=== PATIENT | male | born 1980 | race Caucasian/White ===

== ENCOUNTER 2017-08-08 11:46 | Emergency (ER) | payer BC ==
[2017-08-08] MEDS ORDERED: DICYCLOMINE 20 MG TAB PO STA (13:15)
[2017-08-08] MEDS ORDERED: SODIUM CHLORIDE 0.9% 2,000 ML IV STA (13:15)
[2017-08-08] MEDS ORDERED: ONDANSETRON 4 MG/2 ML VIAL IVP STA (13:15)
--- NOTE | 2017-08-08 13:18 | ED ---
Nausea/Vomiting/Diarrhea HPI - General Chief complaint: Nausea/Vomiting/Diarrhea Stated complaint: food poison Time Seen by Provider: 08/08/17 13:06 Source: patient Mode of arrival: ambulatory Limitations: no limitations - History of Present Illness Initial comments: Patient presents with 4 days of diarrhea. Patient states he returned from a trip to [place] Wednesday night. States morning he had vomiting. Vomiting has since resolved. Patient states he continues to have frequent diarrhea. Patient describes diarrhea as a mustard colored. States no blood in diarrhea or vomiting. Patient states she has mild bilateral lower abdominal cramping just before bowel movement, otherwise no abdominal pains. Patient denies fevers, chills, cough, URI symptoms, changes in urination. Patient denies travel outside the country. Patient denies contact with water sources. Patient states he ate sushi, at [email or web address], ate at many restaurants during his trip, however no one else he was with has been sick. - Related Data Home Medications Medication Instructions Recorded Confirmed Acetaminophen Tab [Tylenol Tab] 650 mg PO Q4H PRN 08/08/17 08/08/17 Bismuth Subsalicylate 524 mg PO ONCE PRN 08/08/17 08/08/17 [Pepto-Bismol] Previous Rx's Medication Instructions Recorded Dicyclomine [Bentyl] 20 mg PO BID #10 tablet 08/08/17 Allergies Allergy/AdvReac Type Severity Reaction Status Date / Time No Known Allergies Allergy Verified 08/08/17 13:13 Review of Systems ROS Statement: Those systems with pertinent positive or pertinent negative responses have been documented in the HPI. ROS Other: All systems not noted in ROS Statement are negative. Constitutional: Denies: fever, chills Eyes: Denies: vision change ENT: Denies: throat pain, congestion Respiratory: Denies: cough Cardiovascular: Denies: chest pain Endocrine: Denies: fatigue Gastrointestinal: Reports: abdominal pain, vomiting (resolved), diarrhea. Denies: nausea, constipation, hematemesis, melena, hematochezia Genitourinary: Denies: urgency, dysuria, frequency, hematuria Musculoskeletal: Denies: back pain, myalgia Skin: Denies: rash, change in color Neurological: Denies: headache Past Medical History Past Medical History: No Reported History History of Any Multi-Drug Resistant Organisms: None Reported Additional Past Surgical History / Comment(s): cysts removed from back Past Psychological History: No Psychological Hx Reported Smoking Status: Never smoker Past Alcohol Use History: Occasional Past Drug Use History: None Reported General Exam - General Exam Comments Initial Comments: Sitting up in bed. No acute distress. Conversing normally. Calm, pleasant, smiling. Not appear in pain. Well-appearing Limitations: no limitations General appearance: alert, in no apparent distress Head exam: Present: atraumatic, normocephalic Eye exam: Present: normal appearance, PERRL, EOMI. Absent: scleral icterus ENT exam: Present: normal oropharynx, mucous membranes moist Neck exam: Present: normal inspection Respiratory exam: Present: normal lung sounds bilaterally. Absent: respiratory distress, wheezes, rales Cardiovascular Exam: Present: regular rate, normal rhythm GI/Abdominal exam: Present: soft. Absent: distended, tenderness, guarding, rebound, rigid, hernia Extremities exam: Present: other (No gross deformities) Neurological exam: Present: alert, oriented X3 Psychiatric exam: Present: normal affect, normal mood Skin exam: Present: warm, dry, intact, normal color. Absent: rash, diaphoretic , erythema Course Vital Signs 08/08/17 11:48 Temperature 97.1 F L Pulse Rate 100 Respiratory 18 Rate Blood Pressure 168/105 O2 Sat by Pulse 97 Oximetry Medical Decision Making - Medical Decision Making IV fluids, Zofran, Bentyl ordered Patient states currently no abdominal pain. Abdominal pains are mild and only right before bowel movement, relieved with bowel movements. Patient has no tenderness on exam. Do not feel imaging of the abdomen warranted at this time. Labs reviewed, minimal elevation of white blood cell count. Patient reevaluated, states symptoms improved. Feels comfortable being discharged home at this time. Agrees to follow primary care physician. Prescription of Bentyl given. Oral hydration discussed. Return to ER for new or worsening symptoms, patient understands and agrees. - Lab Data Result diagrams: 08/08/17 13:39 08/08/17 13:39 Lab Results 08/08/17 08/08/17 08/08/17 Range/Units 13:39 13:39 14:00 WBC 10.9 H (3.8-10.6) k/uL RBC 5.80 (4.30-5.90) m/uL Hgb 16.3 (13.0-17.5) gm/dL Hct 45.1 (39.0-53.0) % MCV 77.8 L (80.0-100.0) fL MCH 28.1 (25.0-35.0) pg MCHC 36.1 (31.0-37.0) g/dL RDW 13.0 (11.5-15.5) % Plt Count 248 (150-450) k/uL Neutrophils % 77 % Lymphocytes % 14 % Monocytes % 6 % Eosinophils % 1 % Basophils % 0 % Neutrophils # 8.4 H (1.3-7.7) k/uL Lymphocytes # 1.6 (1.0-4.8) k/uL Monocytes # 0.6 (0-1.0) k/uL Eosinophils # 0.1 (0-0.7) k/uL Basophils # 0.0 (0-0.2) k/uL Sodium 141 (137-145) mmol/L Potassium 4.0 (3.5-5.1) mmol/L Chloride 101 (98-107) mmol/L Carbon Dioxide 25 (22-30) mmol/L Anion Gap 15 mmol/L BUN 14 (9-20) mg/dL Creatinine 0.88 (0.66-1.25) mg/dL Est GFR (CKD-EPI)AfAm >90 (>60 ml/min/1.73 sqM) Est GFR (CKD-EPI)NonAf >90 (>60 ml/min/1.73 sqM) Glucose 101 H (74-99) mg/dL Calcium 9.8 (8.4-10.2) mg/dL Total Bilirubin 0.7 (0.2-1.3) mg/dL AST 33 (17-59) U/L ALT 49 (21-72) U/L Alkaline Phosphatase 77 (38-126) U/L Total Protein 7.7 (6.3-8.2) g/dL Albumin 4.4 (3.5-5.0) g/dL Lipase 78 (23-300) U/L Influenza Type A RNA Not Detected (Not Detectd) Influenza Type B (PCR) Not Detected (Not Detectd) Disposition Clinical Impression: Diarrhea Disposition: HOME SELF-CARE Condition: Good Instructions: Acute Diarrhea (ED) Additional Instructions: Follow-up with primary care physician 1-2 days. Return to ER if new or worsening symptoms. Prescriptions: Dicyclomine [Bentyl] 20 mg PO BID #10 tablet Referrals: Jonny Alamzan MD [Primary Care Provider] - 1-2 days
[2017-08-08 13:50] LABS: Basophils % (A) 0 %; Eosinophils # (A) 0.1 k/uL (0-0.7); Eosinophils % (A) 1 %; HCT 45.1 % (39.0-53.0); HGB 16.3 gm/dL (13.0-17.5); Lymphocytes # (A) 1.6 k/uL (1.0-4.8); Lymphocytes % (A) 14 %; MCH 28.1 pg (25.0-35.0); MCHC 36.1 g/dL (31.0-37.0); MCV 77.8 fL (80.0-100.0); Mean Platelet Volume 7.8; Monocytes # (A) 0.6 k/uL (0-1.0); Monocytes % (A) 6 %; Neutrophils # (A) 8.4 k/uL (1.3-7.7); Neutrophils % (A) 77 %; Platelet Count 248 k/uL (150-450); WBC 10.9 k/uL (3.8-10.6)
[2017-08-08 13:58] LABS: Albumin 4.4 g/dL (3.5-5.0); Anion Gap 15 mmol/L; Calcium 9.8 mg/dL (8.4-10.2); Carbon Dioxide 25 mmol/L (22-30); Chloride 101 mmol/L (98-107); Glucose 101 mg/dL (74-99); Lipase 78 U/L (23-300); Sodium 141 mmol/L (137-145); Total Bilirubin 0.7 mg/dL (0.2-1.3); Total Protein 7.7 g/dL (6.3-8.2)
[2017-08-08 13:59] LABS: ALT 49 U/L (21-72); AST 33 U/L (17-59); Alkaline Phosphatase 77 U/L (38-126); Blood Urea Nitrogen 14 mg/dL (9-20)
[2017-08-08 15:13] VITALS: BP 140/80; PULSE 89; RESP 17; TEMP 98.1
== END 2017-08-08 15:25 | disposition home or self-care (01) ==
LOC: EC 11:46
DX: R19.7 Diarrhea, unspecified (principal); D72.829 Elevated white blood cell count, unspecified
CPT/HCPCS: 36415; 80053; 83690; 85025; 87502; 99284; 96374; 96361; J2405

== ENCOUNTER 2023-04-06 11:32 | Emergency (ER) | payer BC, OTHER ==
[2023-04-06 12:21] VITALS: RESP 16
--- NOTE | 2023-04-06 13:01 | ED ---
Psych HPI - General Source: patient, RN notes reviewed Mode of arrival: ambulatory Limitations: no limitations - History of Present Illness MD Complaint: suicidal ideation, feels depressed <Bernadette Asencio - Last Filed: 04/06/23 16:14> - General Source: patient, RN notes reviewed - History of Present Illness MD Complaint: feels depressed <Roger Leija - Last Filed: 04/06/23 17:22> - General Chief Complaint: Psychiatric Symptoms Stated Complaint: mental health Time Seen by Provider: 04/06/23 12:35 - History of Present Illness Initial Comments: This is a 42-year-old male who presents to the emergency department for psychiatric evaluation. Reports marital problems over the last 18 months, which is causing him to feel very depressed and suicidal. He has thought of many ways to end his life, but has never acted on anything and does not have a plan at this moment. Denies any homicidal ideations. Also denies any auditory or visual hallucinations. He did not have a psychiatric history prior to this. He does not take any medication for psychiatric problems. (Bernadette Asencio) - Related Data Home Medications Medication Instructions Recorded Confirmed EPINEPHrine (Auto Inject) [Epipen] 0.3 mg IM ONCE PRN 04/06/23 04/06/23 Omeprazole Magnesium [PriLOSEC OTC] 20 mg PO DAILY 04/06/23 04/06/23 amLODIPine BESYLATE/BENAZEPRIL 1 cap PO HS 04/06/23 04/06/23 [Lotrel 10-40 mg Capsule] Allergies Allergy/AdvReac Type Severity Reaction Status Date / Time bee venom protein (honey bee) Allergy Anaphylaxis Verified 04/06/23 17:16 Review of Systems ROS Other: All systems not noted in ROS Statement are negative. <Bernadette Asencio - Last Filed: 04/06/23 16:14> ROS Other: All systems not noted in ROS Statement are negative. <Roger Leija - Last Filed: 04/06/23 17:22> ROS Statement: Those systems with pertinent positive or pertinent negative responses have been documented in the HPI. Past Medical History Past Medical History: Hypertension History of Any Multi-Drug Resistant Organisms: None Reported Additional Past Surgical History / Comment(s): cysts removed from back Past Psychological History: No Psychological Hx Reported Past Alcohol Use History: Occasional Past Drug Use History: None Reported <Bernadette Asencio - Last Filed: 04/06/23 16:14> General Exam Limitations: no limitations General appearance: alert, in no apparent distress Head exam: Present: atraumatic, normocephalic, normal inspection Respiratory exam: Present: normal lung sounds bilaterally. Absent: respiratory distress, wheezes, rales, rhonchi, stridor Cardiovascular Exam: Present: regular rate, normal rhythm, normal heart sounds. Absent: systolic murmur, diastolic murmur, rubs, gallop, clicks Neurological exam: Present: alert, oriented X3, CN II-XII intact Psychiatric exam: Present: depressed, flat affect, suicidal ideation. Absent: homicidal ideation Skin exam: Present: warm, dry, intact, normal color. Absent: rash <Bernadette Asencio - Last Filed: 04/06/23 16:14> General appearance: alert, in no apparent distress Head exam: Present: atraumatic, normocephalic, normal inspection Eye exam: Present: normal appearance, PERRL, EOMI. Absent: scleral icterus, conjunctival injection, periorbital swelling ENT exam: Present: normal exam, mucous membranes moist Neck exam: Present: normal inspection. Absent: tenderness, meningismus, lymphadenopathy Respiratory exam: Present: normal lung sounds bilaterally. Absent: respiratory distress, wheezes, rales, rhonchi, stridor Cardiovascular Exam: Present: regular rate, normal rhythm, normal heart sounds. Absent: systolic murmur, diastolic murmur, rubs, gallop, clicks GI/Abdominal exam: Present: soft. Absent: distended, tenderness, guarding, rebound, rigid Extremities exam: Present: normal inspection, full ROM, normal capillary refill. Absent: tenderness, pedal edema, joint swelling, calf tenderness Back exam: Present: normal inspection Neurological exam: Present: alert, oriented X3, CN II-XII intact Psychiatric exam: Present: depressed. Absent: agitated, anxious, flat affect, manic, suicidal ideation Skin exam: Present: warm, dry, intact, normal color. Absent: rash <Roger Leija - Last Filed: 04/06/23 17:22> Course Vital Signs 04/06/23 11:58 Temperature 98.4 F Pulse Rate 92 Respiratory 16 Rate Blood Pressure 130/85 O2 Sat by Pulse 98 Oximetry Medical Decision Making <DengLamonte corriganBernadette - Last Filed: 04/06/23 16:14> <Roger Leija - Last Filed: 04/06/23 17:22> - Medical Decision Making This is a 42-year-old male who presents to the emergency department for psychiatric evaluation. Was pt. sent in by a medical professional or institution? @ -No Did you speak to anyone other than the patient for history? @ -No Did you review nursing and triage notes? @ -Yes, and I agree, it is accurate with regards to the patient's symptoms. Were old charts reviewed? @ -No Differential Diagnosis? @ -Differential Mental Health Depression, anxiety, bipolar, psychosis, schizophrenia, borderline personality, situational depression, adjustment disorder, behavioral disorder, brain tumor, malingering, substance abuse, encephalopathy, medication reaction, dementia, hypothyroidism, degenerative neurologic disorder, lupus.... This is not meant to be all-inclusive list EKG interpreted by me (3pts min.)? @ -Not obtained X-rays interpreted by me (1pt min.)? @ -Not obtained CT interpreted by me (1pt min.)? @ -Not obtained U/S interpreted by me (1pt. min.)? @ -Not obtained What testing was considered but not performed? (CT, X-rays, U/S, labs)? Why? @ -None What meds were considered but not given? Why? @ -None Did you discuss the management of the patient with other professionals? @ -No Did you reconcile home meds? @ -No Was smoking cessation discussed for >3mins.? @ -No Was critical care preformed (if so, how long)? @ -No Were there social determinants of health that impacted care today? How? (Homelessness, low income, unemployed, alcoholism, drug addiction, transportation, low edu. Level, literacy, decrease access to med. care, residential, rehab)? @ -No Was there de-escalation of care discussed even if they declined? (Discuss DNR or withdrawal of care, Hospice)? @ -No What co-morbidities impacted this encounter? (DM, HTN, Smoking, COPD, CAD, Cancer, CVA, Hep., AIDS, mental health diagnosis, sleep apnea, morbid obesity)? @ -None Was patient admitted / discharged? @ -Patient's BAT was 0 and he was cleared for EPS evaluation. Case signed out to Roger Leija PA-C, at shift completion, pending EPS evaluation. Undiagnosed new problem with uncertain prognosis? @ -None Drug Therapy requiring intensive monitoring for toxicity (Heparin, Nitro, Insulin, Cardizem)? @ -None Were any procedures done? @ -None (Bernadette Asencio) This patient was endorsed to me by the previous APC, Kavya. Waiting EPS evaluation. Patient deemed appropriate for outpatient treatment by EPS. Discussed follow-up with the patient. Patient denying any suicidality or homicidality at this time. Patient states he feels well enough to go home. Will follow-up as an outpatient. The case was discussed in detail with ED attending physician. Presentation, findings, treatment plan discussed in detail. Case discussed in detail with HENRI Hudson from EPS (Roger Lejia) Disposition <Bernadette Asencio - Last Filed: 04/06/23 16:14> Is patient prescribed a controlled substance at d/c from ED?: No Time of Disposition: 17:18 <Roger Leija - Last Filed: 04/06/23 17:22> Clinical Impression: Depression Disposition: HOME SELF-CARE Condition: Stable Instructions (If sedation given, give patient instructions): Depression (ED), Suicide Prevention (ED) Additional Instructions: Follow-up with your regular physician as directed. Return to the ER immediately if any symptoms worsen, new symptoms arise, or any other problems develop. Follow-up as an outpatient as directed by the emergency psychiatric services. Abimbola proms arise return to the ER immediately. If any thoughts of harming herself occur return immediately. Referrals: Les Armstrong MD [Primary Care Provider] - 1-2 days
[2023-04-06 17:30] VITALS: BP 129/84; PULSE 84; TEMP 98.1
== END 2023-04-06 17:50 | disposition home or self-care (01) ==
LOC: EC 11:32
DX: F32.A Depression, unspecified (principal); I10 Essential (primary) hypertension; Z79.899 Other long term (current) drug therapy; Z91.030 Bee allergy status
CPT/HCPCS: 99284